=== PATIENT | male | born 1950 ===

== ENCOUNTER 2024-02-01 06:26 | Day surgery (SDC) | payer BC, OTHER ==
[~2024-02-01] VITALS: Ht 172.7 cm; Wt 98.6 kg
[2024-02-01] MEDS: CEFAZOLIN SOD 2 GM in D5W 50 ML IV ONE (07:00)
[2024-02-01] MEDS: CELECOXIB 100 MG CAPSULE ONE (07:10)
[2024-02-01] MEDS: ACETAMINOPHEN 325 MG TABLET ONE (07:10)
[2024-02-01] MEDS: oxyCODONE HCL 10 MG TAB.ER.12H PO ONE ×2 (07:11→08:32)
[2024-02-01] MEDS: SCOPOLAMINE HYDROBROMIDE 1 MG PATCH .72 H (TRANSDERM-SCOP) TD ONE ×2 (07:11→07:26)
[2024-02-01] MEDS: GABAPENTIN 300 MG CAPSULE ONE (07:12)
[2024-02-01] MEDS: CELECOXIB 100 MG CAPSULE PO ONE (07:26)
[2024-02-01] MEDS: GABAPENTIN 300 MG CAPSULE PO ONE (07:26)
[2024-02-01] MEDS: ACETAMINOPHEN 500 MG TABLET PO ONE (07:26)
[2024-02-01] MEDS ORDERED: LR 1,000 ML IV.SOLN IV ONE (08:45)
[2024-02-01] MEDS ORDERED: GLYCOPYRROLATE 0.2 MG/ML VIAL ONE (08:45)
[2024-02-01] MEDS ORDERED: TRANEXAMIC ACID 1,000 MG/10 ML VIAL ONE (08:45)
[2024-02-01] MEDS ORDERED: ETOMIDATE 20 MG/ 10 ML VIAL (AMIDATE) ONE (08:45)
[2024-02-01] MEDS ORDERED: PHENYLEPHRINE HCL 10 MG/ML VIAL (NEOSYNEPHRINE) ONE (08:45)
[2024-02-01] MEDS ORDERED: BUPIVACAINE /PF 0.75% 10 ML VIAL INJ ONE (08:45)
[2024-02-01] MEDS ORDERED: NEOSTIGMINE METHYLSULFATE 1 MG/ML, 10 ML VIAL ONE (08:45)
[2024-02-01] MEDS ORDERED: ePHEDrine sulfate 50 MG/ML VIAL ONE (08:45)
[2024-02-01] MEDS ORDERED: VANCOMYCIN HCL 1000 MG/VIAL IV ONE (08:45)
[2024-02-01] MEDS ORDERED: ROCURONIUM BROMIDE 10 MG/ML (ZEMURON) ONE (08:45)
[2024-02-01] MEDS ORDERED: ONDANSETRON HCL 4 MG/2 ML VIAL ONE (08:45)
[2024-02-01] MEDS ORDERED: SUCCINYLCHOLINE CHLORIDE 20 MG/ML(QUELICIN) ONE (08:45)
[2024-02-01] MEDS ORDERED: METOCLOPRAMIDE HCL 10 MG/2 ML VIAL ONE (08:45)
[2024-02-01] MEDS ORDERED: WATER FOR IRRIGATION,STERILE 1,000 ML IRRIG.SOLN IR ONE (08:45)
[2024-02-01] MEDS ORDERED: MIDAZOLAM HCL 2 MG/2 ML VIAL (VERSED) ONE (08:45)
[2024-02-01] MEDS ORDERED: NS IRRIG SOLN 5000 ML IR ONE (08:45)
[2024-02-01] MEDS ORDERED: KETOROLAC TROMETHAMINE 30 MG VIAL ONE (08:45)
[2024-02-01] MEDS ORDERED: SEVOFLURANE 15 MIN GAS INH ONE (08:45)
[2024-02-01] MEDS ORDERED: HYDROmorphone 1 MG/ML INJ. CARTRIDGE IVP PRN ×4 (10:15→11:00)
[2024-02-01] MEDS ORDERED: ONDANSETRON HCL 4 MG/2 ML VIAL IVP PRN ×2 (10:15→11:45)
[2024-02-01] MEDS: LR 1,000 ML IV SCH (10:15)
[2024-02-01] MEDS ORDERED: HYDROmorphone 2 MG/ML VIAL IVP PRN (10:15)
[2024-02-01] MEDS ORDERED: LORATADINE 10 MG TABLET PO PRN (11:00)
[2024-02-01] MEDS ORDERED: oxyCODONE HCL 5 MG TABLET PO PRN ×2 (11:00)
[2024-02-01] MEDS ORDERED: traMADol HCL HCL 50 MG TABLET (ULTRAM) PO PRN (11:00)
[2024-02-01] MEDS: ALBUMIN HUMAN 5% 250 ML IV ONE ×3 (13:00→15:27)
[2024-02-01] MEDS ORDERED: OMEP20CA15 PO (13:04)
[2024-02-01] MEDS ORDERED: ASPI-1393 PO (13:04)
[2024-02-01] MEDS ORDERED: LOSA1TAB40 PO (13:04)
[2024-02-01] MEDS ORDERED: NOR10 PO (13:04)
[2024-02-01] MEDS: KETOROLAC TROMETHAMINE 10 MG TABLET (TORADOL) PO SCH (14:00)
[2024-02-01] MEDS: ACETAMINOPHEN 500 MG TABLET PO SCH (14:00)
[2024-02-01 14:30] VITALS: BP_SYST 94; PULSE 70; RESP 16; TEMP 97.2; TEMP 97.5; O2SAT 95
[2024-02-01] MEDS ORDERED: DIPHENHYDRAMINE HCL 25 MG CAPSULE PO PRN (14:30)
[2024-02-01] MEDS ORDERED: LACTULOSE 20 GM/30 ML UDC PO PRN (14:30)
[2024-02-01] MEDS ORDERED: METOCLOPRAMIDE HCL 10 MG/2 ML VIAL IVP PRN (14:30)
[2024-02-01] MEDS ORDERED: BISACODYL 10 MG/SUPPOSITORY RC PRN (14:30)
[2024-02-01 15:32] VITALS: BP_SYST 94; PULSE 70; RESP 16; TEMP 97.2; O2SAT 95
[2024-02-01] MEDS: NACL 0.9% 1,000 ML IV SCH (17:05)
[2024-02-01] MEDS: ceFAZolin SODIUM 2 GM in D5W 50 ML IV SCH (17:05)
[2024-02-01 20:00] VITALS: BP_SYST 117; PULSE 79; RESP 18; TEMP 98.3; O2SAT 96
[2024-02-01] MEDS: SENNOSIDES/DOCUSATE SODIUM 1 TAB TABLET(SENOKOT-S) PO SCH (21:34)
[2024-02-01 22:00] VITALS: O2SAT 95
[2024-02-02] VITALS (7 sets, daily range): BP systolic 115–159; PULSE 76–99; RESP 16–18; TEMP 97.9–99.4; O2SAT 95–99
[2024-02-02 07:18] LABS: ALANINE AMINOTRANSFERASE 122 U/L (12-78); ANION GAP 12 (5-15); ASPARTATE AMINOTRANSFERASE 248 U/L (10-37); CALCIUM 8.8 mg/dL (8.4-11.0); CARBON DIOXIDE 25 mmol/L (23-29); CHLORIDE 93 mmol/L (98-107); CREATININE 0.93 mg/dL (0.55-1.30); GLUCOSE 127 mg/dL (74-106); POTASSIUM 4.1 mmol/L (3.5-5.1); SODIUM SERUM 130 mmol/L (136-145); TOTAL BILIRUBIN 1.4 mg/dL (0.0-1.0); TOTAL PROTEIN, SERUM 6.9 g/dL (6.4-8.3); UREA NITROGEN, BLOOD 20 mg/dL (8-21)
[2024-02-02 07:31] LABS: BASOPHILS % (AUTO) 0.3 % (0.0-2.0); EOSINOPHILS % (AUTO) 0.3 % (0.0-4.0); HEMATOCRIT 41.1 % (36-54); LYMPHOCYTES # (AUTO) 0.6 K/uL (1.0-5.5); LYMPHOCYTES % (AUTO) 6.3 % (20.5-51.5); MEAN CORPUSCULAR HEMOGLOBIN 30 pg (27-31); MEAN CORPUSCULAR HGB CONC 34 % (32-36); MEAN CORPUSCULAR VOLUME 88 fL (79.0-98.0); MONOCYTES # (AUTO) 0.6 K/uL (0.0-1.0); MONOCYTES % (AUTO) 6.5 % (1.7-9.3); NEUTROPHILS # (AUTO) 8.3 K/uL (1.8-7.7); NEUTROPHILS % (AUTO) 86.6 % (40.0-70.0); PLATELET COUNT (AUTO) 383 K/uL (130-430); RED BLOOD CELL COUNT(AUTO) 4.66 MIL/uL (4.2-6.2); RED CELL DISTRIBUTION WIDTH 13.9 % (9.0-15.0); WHITE BLOOD COUNT (AUTO) 9.6 K/uL (4.8-10.8)
[2024-02-02] MEDS: PANTOPRAZOLE SODIUM 40 MG TAB PO SCH (09:26)
[2024-02-02] MEDS: amLODIPine BESYLATE 10 MG TABLET PO SCH (09:27)
[2024-02-02] MEDS: ASPIRIN 81 MG TAB.CHEW PO SCH (09:28)
[2024-02-02] MEDS: CELECOXIB 200 MG CAPSULE PO SCH (11:14)
== END 2024-02-02 21:38 ==
LOC: SDS 06:26 → SMU 06:28 → SDS 02-02 21:38
PROVIDERS: ATTEND Student in an Organized Health Care Education/Training Program
DX: M16.12 Unilateral primary osteoarthritis, left hip (principal); I10 Essential (primary) hypertension; E66.01 Morbid (severe) obesity due to excess calories; K21.9 Gastro-esophageal reflux disease without esophagitis; G62.9 Polyneuropathy, unspecified; Z68.33 Body mass index [BMI] 33.0-33.9, adult; Z98.890 Other specified postprocedural states; Z79.899 Other long term (current) drug therapy; Z96.641 Presence of right artificial hip joint; Z83.3 Family history of diabetes mellitus
CPT/HCPCS: 87081; 96379; 80053; 85025; 36415; 73502; 97110; 97530 ×2; 97116 ×2; 97162; 82948; 88305; 88311; 27130; J2710; P9041; J3490 ×3; J0690; J1885; J2765; J2250; J2405; J0330; J3370; J7060; J7120; J7030 ×2; A4649; C1776 ×4; C1713 ×2; 76000